=== PATIENT | male | born 1970 | race African-American/Black ===

== ENCOUNTER 2024-02-18 11:08 | Emergency (ER) | payer SELFPAY ==
[~2024-02-18] VITALS: Ht 182.9 cm; Wt 82.0 kg
[2024-02-18 11:10] VITALS: TEMP 98.4; O2SAT 100
[2024-02-18] MEDS: IBUPROFEN 600MG TABLET PO ONE (12:15)
[2024-02-18] MEDS ORDERED: ACET-2708 MT (14:14)
[2024-02-18] MEDS ORDERED: IBUP-2029 MT (14:14)
[2024-02-18 14:36] VITALS: BP 125/80; PULSE 73; RESP 20; O2SAT 100
== END 2024-02-18 14:39 | disposition home or self-care (01) ==
LOC: ER 11:54
DX: S82.141A Displaced bicondylar fracture of right tibia, initial encounter for closed fracture (principal); I10 Essential (primary) hypertension; X58.XXXA Exposure to other specified factors, initial encounter; Y93.89 Activity, other specified; Y92.89 Other specified places as the place of occurrence of the external cause; Y99.8 Other external cause status
CPT/HCPCS: 99284; 73560; 73590; L1830

== ENCOUNTER 2024-02-21 08:04 | Emergency (ER) | payer SELFPAY ==
[~2024-02-21] VITALS: Ht 182.9 cm; Wt 82.0 kg
[~2024-02-21 08:04] MED LIST: ACET-2708 MT; IBUP-2029 MT
[2024-02-21 08:06] VITALS: BP 154/92; PULSE 91; RESP 16; TEMP 98.9; O2SAT 99
== END 2024-02-21 09:17 | disposition left against medical advice (07) ==
LOC: ER 08:04
DX: M79.604 Pain in right leg (principal); Z53.21 Procedure and treatment not carried out due to patient leaving prior to being seen by health care provider

== ENCOUNTER 2024-04-03 19:13 | Emergency (ER) | payer SELFPAY ==
[~2024-04-03] VITALS: Ht 175.3 cm; Wt 77.0 kg
[2024-04-03 19:17] VITALS: BP 132/79; PULSE 97; RESP 16; TEMP 98.1; O2SAT 100
== END 2024-04-03 23:10 | disposition left against medical advice (07) ==
LOC: ER 19:13
DX: R51.9 Headache, unspecified (principal); Z53.21 Procedure and treatment not carried out due to patient leaving prior to being seen by health care provider